=== PATIENT | female | born 1965 | race Two or more races ===

== ENCOUNTER 2025-09-07 14:40 | Emergency (ER) | payer OTHER, SELFPAY ==
[2025-09-07 14:42] VITALS: BMI 33.3
[2025-09-07 15:03] VITALS: BP 137/79; PULSE 69; RESP 16; TEMP 36.5; O2SAT 96
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
== END 2025-09-07 16:50 | disposition home or self-care (01) ==
LOC: SERX 16:42
PROVIDERS: Emergency Provider Emergency Medicine; PCP Physician Assistant
DX: S29.012A Strain of muscle and tendon of back wall of thorax, initial encounter (principal); S20.211A Contusion of right front wall of thorax, initial encounter; S40.021A Contusion of right upper arm, initial encounter; V89.9XXA Person injured in unspecified vehicle accident, initial encounter; Y92.411 Interstate highway as the place of occurrence of the external cause
CPT/HCPCS: 99281